=== PATIENT | female | born 1960 | race Caucasian/White ===

== ENCOUNTER 2020-08-05 19:43 | Inpatient (IN) | payer MEDICAID, OTHER ==
[~2020-08-05] VITALS: Ht 154.9 cm; Wt 74.8 kg
--- NOTE | 2020-08-05 19:53 | NUR ---
PT CAME IN TO TRIAGE ON A HOME NC WITH A EMPTY O2 BOTTLE. PT ROOM AIR SAT IN MID 70'S
--- NOTE | 2020-08-05 20:10 | NUR ---
PT C/O COUGH WITH VOMITING AT TIMES WITH COUGH/NASAL CONGESTION FOR INDETERMINATE AMOUNT OF TIME. PT [place] [facility] [place]. PT ALSO REPORTS DIFFICULTY WITH URINATING. PT DENIES CP.
[2020-08-05] MEDS ORDERED: INSULIN SQ (20:17)
[2020-08-05] MEDS ORDERED: SERT100T32 PO (20:17)
[2020-08-05] MEDS ORDERED: FLUT9.9S NS (20:17)
[2020-08-05] MEDS ORDERED: DIVA500T2 PO (20:17)
[2020-08-05] MEDS ORDERED: OMEP-110 PO (20:17)
[2020-08-05] MEDS ORDERED: MONT10TA6 PO (20:17)
[2020-08-05] MEDS ORDERED: IPRA12.9 INH (20:17)
[2020-08-05] MEDS ORDERED: QUET100T4 PO (20:17)
[2020-08-05] MEDS ORDERED: BUDE10.22 INH (20:17)
[2020-08-05] MEDS ORDERED: METF500T17 PO (20:17)
[2020-08-05] MEDS ORDERED: INSU100I34 SQ (20:17)
[2020-08-05] MEDS ORDERED: ASPI81TA45 PO (20:17)
[2020-08-05] MEDS ORDERED: QUET400T4 PO (20:17)
[2020-08-05] MEDS ORDERED: ONDANSETRON ODT 4 MG ONE (20:26)
[2020-08-05] MEDS ORDERED: ONDANSETRON ODT 4 MG PO ONE (20:30)
[2020-08-05 20:51] LABS: MICROSCOPIC NOT IND
[2020-08-05 20:58] LABS: MEAN CORPUSCULAR HGB CONC 31.9 g/dL (32.4-35.8); MEAN PLATELET VOLUME 7.7 fL (7.4-10.4); PLATELET COUNT 238 x10^3/uL (130-400); RED BLOOD COUNT 4.03 x10^6/uL (3.82-5.3)
[2020-08-05 21:06] LABS: ALBUMIN 3.2 g/dL (3.4-5.0); ANION GAP 3 mmol/L (5-15); CALCIUM 8.8 mg/dL (8.5-10.1); CHLORIDE 107 mmol/L (98-107); CREATININE 1.18 mg/dL (0.55-1.02)
[2020-08-05 21:13] LABS: ALANINE AMINOTRANSFERASE 23 U/L (12-78); ALKALINE PHOSPHATASE 71 U/L (45-117); BILIRUBIN,TOTAL 0.3 mg/dL (0.2-1.0); TOTAL PROTEIN 6.9 g/dL (6.4-8.2)
[2020-08-05] MEDS ORDERED: ALBUTEROL/IPRATROPIUM 2.5MG/0.5MG, 3 ML NPPB ONE (21:30)
[2020-08-05] MEDS ORDERED: ALBUTEROL SULFATE 2.5 MG/3 ML NPPB ONE (21:30)
[2020-08-05] MEDS ORDERED: SODIUM CHLORIDE 0.9% 1,000ML IVBOLUS ONE (21:30)
--- NOTE | 2020-08-05 21:31 | NUR ---
Lesli dalton in ED - 08/05/20 at 2131 by IRIS CHART UP FOR MD PUCKETT. PT AWARE.
[2020-08-05 21:33] LABS: ANISOCYTOSIS 1+; BASOPHILS # (AUTO) 0.02 x10^3/uL (0-0.1); BASOPHILS % (AUTO) 0 % (0-1); EOSINOPHILS # (AUTO) 0.02 x10^3/uL (0-0.4); EOSINOPHILS % (AUTO) 0 % (1-7); LYMPHOCYTES # (AUTO) 1.82 x10^3/uL (1-3.4); LYMPHOCYTES % (AUTO) 26 % (22-44); MD MORPH REVIEW ONLY; MONOCYTES # (AUTO) 1.32 x10^3/uL (0.2-0.8); MONOCYTES % (AUTO) 19 % (2-9); NEUTROPHILS # (AUTO) 3.85 x10^3/uL (1.8-6.8); NEUTROPHILS % (AUTO) 55 % (42-75); POLYCHROMASIA 1+
[2020-08-05 21:34] LABS: <PLATELET ESTIMATE> ADEQUATE; <PLT MORPHOLOGY> NORMAL PLT MORPH; HYPOCHROMIA 1+; OVALOCYTES 1+
--- NOTE | 2020-08-05 21:50 | NUR ---
IV STARTED AND FLUIDS RUNNING PER MD. REPORT TO DEYANIRA GARCIA. PT PLACED ON DROPLET PRECAUTIONS AND ROOM 17 DOOR CLOSED FOR COVID R/O.
--- NOTE | 2020-08-05 22:05 | NUR ---
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
--- NOTE | 2020-08-05 22:10 | NUR ---
COVID SWAB COLLECTED AND WALKED TO LAB
[2020-08-05] MEDS ORDERED: ALBUTEROL SULFATE 2.5 MG/3 ML ONE (22:20)
[2020-08-05] MEDS ORDERED: ALBUTEROL/IPRATROPIUM 2.5MG/0.5MG, 3 ML ONE (22:21)
[2020-08-05] MEDS ORDERED: AZITHROMYCIN 500 MG in SODIUM CHLORIDE 0.9% 250 ML IV ONE (22:30)
--- NOTE | 2020-08-05 22:48 | NUR ---
BREATHING TREATMENT STARTED
--- NOTE | 2020-08-05 22:48 | NUR ---
REPORT FROM RADHA MCMILLAN
[2020-08-05 22:50] LABS: AMPHETAMINE SCREEN, URINE Negative (Negative); BARBITURATE SCREEN, URINE Negative (Negative); BENZODIAZEPINE SCREEN, URINE Positive (Negative); CANNABINOID SCREEN, URINE Negative (Negative); METHADONE SCREEN, URINE Negative (Negative); OPIATE SCREEN, URINE Negative (Negative)
[2020-08-05 22:51] LABS: COCAINE SCREEN, URINE Negative (Negative)
--- NOTE | 2020-08-05 22:59 | NUR ---
REPORT TO RADHA MEDELLIN
[2020-08-05] MEDS ORDERED: ONDANSETRON ODT 4 MG PO PRN (23:30)
[2020-08-05] MEDS: INSULIN LISPRO 100 UNITS/ML, PEN SQ-INSULIN SCH (23:30)
[2020-08-05] MEDS ORDERED: OXYcodone IR 5MG TABLET PO PRN (23:30)
[2020-08-05] MEDS ORDERED: POLYETHYLENE GLYCOL 17 GM PACKET PO PRN (23:30)
[2020-08-05] MEDS ORDERED: hydrALAzine 20 MG/ML, 1ML IVPush PRN (23:30)
[2020-08-05] MEDS ORDERED: BISACODYL 10 MG SUPP PR PRN (23:30)
[2020-08-05] MEDS ORDERED: morphine SULFATE 10 MG/ML, 1ML IVPush PRN (23:30)
[2020-08-06 00:01] VITALS: BP 155/86
[2020-08-06] MEDS: methylPREDNISolone SOD SUCC 40 MG/ML IVPush SCH ×5 (00:24→23:18)
[2020-08-06] MEDS: ENOXAPARIN 40 MG/0.4 ML SQ SCH (00:24)
[2020-08-06] MEDS: PROMETHAZINE 25 MG/ML, 1ML IM PRN ×2 (00:25→03:36)
[2020-08-06] MEDS: GUAIFENESIN ER 600 MG TABLET PO SCH ×3 (00:28→20:51)
[2020-08-06] MEDS: CEFTRIAXONE PMX 2GM/50ML 50 ML IV SCH (00:43)
[2020-08-06 00:52] VITALS: BP 155/86
[2020-08-06] MEDS ORDERED: ALBUTEROL-IPRATROPIUM MDI INH INH PRN (01:30)
[2020-08-06] MEDS: ALBUTEROL-IPRATROPIUM MDI INH INH SCH ×4 (05:51→19:26)
[2020-08-06 05:55] LABS: BASOPHILS # (AUTO) 0.03 x10^3/uL (0-0.1); BASOPHILS % (AUTO) 0 % (0-1); EOSINOPHILS # (AUTO) 0.04 x10^3/uL (0-0.4); EOSINOPHILS % (AUTO) 1 % (1-7); LYMPHOCYTES # (AUTO) 1.43 x10^3/uL (1-3.4); LYMPHOCYTES % (AUTO) 20 % (22-44); MD NO; MEAN CORPUSCULAR HGB CONC 31.5 g/dL (32.4-35.8); MEAN PLATELET VOLUME 7.9 fL (7.4-10.4); MONOCYTES # (AUTO) 0.51 x10^3/uL (0.2-0.8); MONOCYTES % (AUTO) 7 % (2-9); NEUTROPHILS # (AUTO) 5.08 x10^3/uL (1.8-6.8); NEUTROPHILS % (AUTO) 72 % (42-75); PLATELET COUNT 204 x10^3/uL (130-400); RED BLOOD COUNT 4.25 x10^6/uL (3.82-5.3); RED CELL DISTRIBUTION WIDTH 19.7 % (9.6-15.2)
[2020-08-06 06:01] LABS: ALBUMIN 2.9 g/dL (3.4-5.0); ANION GAP 8 mmol/L (5-15); CALCIUM 8.2 mg/dL (8.5-10.1); CHLORIDE 108 mmol/L (98-107)
[2020-08-06 06:11] LABS: ALANINE AMINOTRANSFERASE 23 U/L (12-78); ALKALINE PHOSPHATASE 79 U/L (45-117); BILIRUBIN,TOTAL 0.2 mg/dL (0.2-1.0); CHOL/HDL RATIO 1.9; CHOLESTEROL, TOTAL 147 mg/dL (140-239); CREATININE 0.92 mg/dL (0.55-1.02); HDL CHOL % 52 % (28-40); HDL CHOLESTEROL (DIRECT) 77 mg/dL (40-60); LDL CHOLESTEROL,CALCULATED 52 mg/dL (54-169); LDL/HDL RATIO 0.7 (0.5-3.0); TOTAL PROTEIN 6.7 g/dL (6.4-8.2); TRIGLYCERIDES 92 mg/dL (50-200); VLDL CHOLESTEROL 18 mg/dL (0-25)
[2020-08-06 06:43] VITALS: BP 129/72
[2020-08-06] MEDS: FLUTICASONE/VILANTEROL 100-25MCG/INH INH SCH ×2 (06:56→10:33)
[2020-08-06] MEDS: INSULIN LISPRO 100 UNITS/ML, PEN SQ-INSULIN SCH ×4 (07:00→20:54)
[2020-08-06] MEDS ORDERED: ALBUTEROL-IPRATROPIUM MDI INH INH SCH (07:00)
[2020-08-06] MEDS: NICOTINE 21 MG/24 HR PATCH.TD24 TD SCH (11:23)
[2020-08-06 12:36] VITALS: BP 163/100
[2020-08-06 19:40] VITALS: BP 143/66
[2020-08-06] MEDS: ONDANSETRON 2MG/ML, 2ML IVPush PRN (20:55)
[2020-08-06] MEDS: LORazepam 0.5MG TABLET PO PRN (23:18)
[2020-08-06] MEDS: AZITHROMYCIN 500 MG in SODIUM CHLORIDE 0.9% 250 ML IV SCH (23:18)
[2020-08-07] MEDS: ENOXAPARIN 40 MG/0.4 ML SQ SCH (00:30)
[2020-08-07] MEDS: CEFTRIAXONE PMX 2GM/50ML 50 ML IV SCH (00:30)
[2020-08-07 01:00] VITALS: BP 159/85
[2020-08-07] MEDS: methylPREDNISolone SOD SUCC 40 MG/ML IVPush SCH ×3 (05:22→18:13)
[2020-08-07 06:00] LABS: BASOPHILS # (AUTO) 0.02 x10^3/uL (0-0.1); BASOPHILS % (AUTO) 0 % (0-1); EOSINOPHILS # (AUTO) 0.02 x10^3/uL (0-0.4); EOSINOPHILS % (AUTO) 0 % (1-7); LYMPHOCYTES # (AUTO) 1.43 x10^3/uL (1-3.4); LYMPHOCYTES % (AUTO) 25 % (22-44); MD NO; MEAN CORPUSCULAR HEMOGLOBIN 27.3 pg (27.0-34.8); MEAN CORPUSCULAR HGB CONC 31.8 g/dL (32.4-35.8); MEAN PLATELET VOLUME 8.1 fL (7.4-10.4); MONOCYTES # (AUTO) 0.51 x10^3/uL (0.2-0.8); MONOCYTES % (AUTO) 9 % (2-9); NEUTROPHILS # (AUTO) 3.83 x10^3/uL (1.8-6.8); NEUTROPHILS % (AUTO) 66 % (42-75); PLATELET COUNT 202 x10^3/uL (130-400); RED CELL DISTRIBUTION WIDTH 20.1 % (9.6-15.2)
[2020-08-07 06:27] VITALS: BP 143/87
[2020-08-07 06:27] LABS: CHLORIDE 103 mmol/L (98-107)
[2020-08-07 06:47] LABS: ALANINE AMINOTRANSFERASE 20 U/L (12-78); ALBUMIN 2.7 g/dL (3.4-5.0); ALKALINE PHOSPHATASE 63 U/L (45-117); ANION GAP 9 mmol/L (5-15); BILIRUBIN,TOTAL 0.3 mg/dL (0.2-1.0); CALCIUM 8.2 mg/dL (8.5-10.1); CREATININE 0.67 mg/dL (0.55-1.02); TOTAL PROTEIN 6.4 g/dL (6.4-8.2)
[2020-08-07] MEDS: ALBUTEROL-IPRATROPIUM MDI INH INH SCH ×4 (06:54→19:36)
[2020-08-07] MEDS: FLUTICASONE/VILANTEROL 100-25MCG/INH INH SCH (06:54)
[2020-08-07] MEDS: GUAIFENESIN ER 600 MG TABLET PO SCH ×2 (07:44→20:30)
[2020-08-07] MEDS: NICOTINE 21 MG/24 HR PATCH.TD24 TD SCH (07:44)
[2020-08-07] MEDS: LORazepam 0.5MG TABLET PO PRN ×2 (07:49→18:13)
[2020-08-07] MEDS: INSULIN LISPRO 100 UNITS/ML, PEN SQ-INSULIN SCH ×4 (07:50→20:29)
[2020-08-07 12:24] VITALS: BP 163/96
[2020-08-07] MEDS: ASCORBIC ACID 500 MG TABLET PO SCH (15:37)
[2020-08-07 19:46] VITALS: BP 159/84
[2020-08-07] MEDS: ONDANSETRON 2MG/ML, 2ML IVPush PRN (20:19)
[2020-08-07] MEDS: CHOLECALCIFEROL 400 UNITS TABLET PO SCH (20:29)
[2020-08-07] MEDS: THIAMINE 100MG TABLET PO SCH (20:29)
[2020-08-07] MEDS: AZITHROMYCIN 500 MG in SODIUM CHLORIDE 0.9% 250 ML IV SCH (22:49)
[2020-08-08] VITALS (7 sets, daily range): BP systolic 140–172; BP diastolic 63–92
[2020-08-08] MEDS: methylPREDNISolone SOD SUCC 40 MG/ML IVPush SCH ×3 (00:25→11:58)
[2020-08-08] MEDS: CEFTRIAXONE PMX 2GM/50ML 50 ML IV SCH (00:25)
[2020-08-08] MEDS: ENOXAPARIN 40 MG/0.4 ML SQ SCH (00:26)
[2020-08-08 05:09] LABS: MEAN CORPUSCULAR HEMOGLOBIN 27.5 pg (27.0-34.8); MEAN CORPUSCULAR HGB CONC 32.1 g/dL (32.4-35.8); PLATELET COUNT 221 x10^3/uL (130-400); RED BLOOD COUNT 4.17 x10^6/uL (3.82-5.3); RED CELL DISTRIBUTION WIDTH 20.5 % (9.6-15.2)
[2020-08-08 05:16] LABS: CHLORIDE 97 mmol/L (98-107)
[2020-08-08 05:26] LABS: ALANINE AMINOTRANSFERASE 18 U/L (12-78); ALBUMIN 2.8 g/dL (3.4-5.0); ALKALINE PHOSPHATASE 65 U/L (45-117); ANION GAP 6 mmol/L (5-15); BILIRUBIN,TOTAL 0.4 mg/dL (0.2-1.0); CALCIUM 8.3 mg/dL (8.5-10.1); TOTAL PROTEIN 6.6 g/dL (6.4-8.2)
[2020-08-08 05:56] LABS: MD YES
[2020-08-08 05:58] LABS: ANISOCYTOSIS 1+; BAND#(MANUAL) 0.18 x10^3/uL; BANDS%(MANUAL) 3 % (0-7); LYMPH#(MANUAL) 1.59 x10^3/uL (1-3.4); LYMPHS% (MANUAL) 26 % (22-44); METAMYELOCYTES# (MANUAL) 0.12 x10^3/uL (0-0); METAMYELOCYTES% (MANUAL) 2 % (0-1); MONOS#(MANUAL) 0.73 x10^3/uL (0.3-2.7); MONOS% (MANUAL) 12 % (2-9); REACTIVE LYMPHS # (MANUAL) 0.12 x10^3/uL (0-0); REACTIVE LYMPHS % (MANUAL) 2 % (0-0); SEG#(MANUAL) 3.36 x10^3/uL (1.8-6.8); SEGS% (MANUAL) 55 % (42-75)
[2020-08-08 05:59] LABS: OVALOCYTES 1+; POLYCHROMASIA 1+
[2020-08-08 06:00] LABS: <PLATELET ESTIMATE> ADEQUATE; <PLT MORPHOLOGY> NORMAL PLT MORPH; ECHINOCYTES 1+
[2020-08-08] MEDS: FLUTICASONE/VILANTEROL 100-25MCG/INH INH SCH (07:45)
[2020-08-08] MEDS: ALBUTEROL-IPRATROPIUM MDI INH INH SCH ×4 (07:45→21:00)
[2020-08-08] MEDS: NICOTINE 21 MG/24 HR PATCH.TD24 TD SCH (07:54)
[2020-08-08] MEDS: CHOLECALCIFEROL 400 UNITS TABLET PO SCH ×2 (07:54→21:12)
[2020-08-08] MEDS: ZINC SULFATE 220 MG CAPSULE PO SCH (07:54)
[2020-08-08] MEDS: ASCORBIC ACID 500 MG TABLET PO SCH ×2 (07:54→16:09)
[2020-08-08] MEDS: THIAMINE 100MG TABLET PO SCH ×2 (07:54→21:12)
[2020-08-08] MEDS: GUAIFENESIN ER 600 MG TABLET PO SCH ×2 (07:54→21:12)
[2020-08-08] MEDS: INSULIN LISPRO 100 UNITS/ML, PEN SQ-INSULIN SCH ×4 (07:55→21:13)
[2020-08-08] MEDS: INSULIN GLARGINE 100 UNITS/ML, PEN SQ-INSULIN SCH ×2 (15:00→21:13)
[2020-08-08] MEDS ORDERED: OMNIPAQUE 350 MG/ML, 100ML BOTTLE ONE (15:54)
[2020-08-08] MEDS ORDERED: LABETALOL 5MG/ML, 20ML IVPush PRN (16:30)
[2020-08-08] MEDS: LISINOPRIL 40 MG TABLET PO SCH (16:47)
[2020-08-08] MEDS: QUETIAPINE 200 MG TABLET PO SCH (21:12)
[2020-08-08] MEDS: DIVALPROEX 500 MG TABLET.DR PO SCH (21:12)
[2020-08-08] MEDS: AZITHROMYCIN 500 MG in SODIUM CHLORIDE 0.9% 250 ML IV SCH (23:08)
[2020-08-09 00:55] VITALS: BP 114/63
[2020-08-09] MEDS: CEFTRIAXONE PMX 2GM/50ML 50 ML IV SCH (01:01)
[2020-08-09] MEDS: ENOXAPARIN 40 MG/0.4 ML SQ SCH (01:01)
[2020-08-09 05:14] LABS: MEAN CORPUSCULAR HEMOGLOBIN 27.6 pg (27.0-34.8); MEAN CORPUSCULAR HGB CONC 32.3 g/dL (32.4-35.8); MEAN PLATELET VOLUME 8.2 fL (7.4-10.4); PLATELET COUNT 209 x10^3/uL (130-400); RED BLOOD COUNT 4.47 x10^6/uL (3.82-5.3)
[2020-08-09 05:19] LABS: CHLORIDE 100 mmol/L (98-107)
[2020-08-09 05:31] LABS: ALANINE AMINOTRANSFERASE 20 U/L (12-78); ALBUMIN 2.7 g/dL (3.4-5.0); ALKALINE PHOSPHATASE 60 U/L (45-117); ANION GAP 5 mmol/L (5-15); BILIRUBIN,TOTAL 0.3 mg/dL (0.2-1.0); CALCIUM 8.6 mg/dL (8.5-10.1); CREATININE 0.75 mg/dL (0.55-1.02); TOTAL PROTEIN 6.4 g/dL (6.4-8.2)
[2020-08-09 06:19] LABS: BASOPHILS # (AUTO) 0.07 x10^3/uL (0-0.1); BASOPHILS % (AUTO) 1 % (0-1); EOSINOPHILS # (AUTO) 0.05 x10^3/uL (0-0.4); EOSINOPHILS % (AUTO) 1 % (1-7); LYMPHOCYTES # (AUTO) 3.59 x10^3/uL (1-3.4); LYMPHOCYTES % (AUTO) 51 % (22-44); MD SCAN; MONOCYTES # (AUTO) 0.96 x10^3/uL (0.2-0.8); MONOCYTES % (AUTO) 14 % (2-9); NEUTROPHILS # (AUTO) 2.41 x10^3/uL (1.8-6.8); NEUTROPHILS % (AUTO) 34 % (42-75)
[2020-08-09 06:38] VITALS: BP 136/85
[2020-08-09] MEDS: INSULIN LISPRO 100 UNITS/ML, PEN SQ-INSULIN SCH ×4 (07:00→20:06)
[2020-08-09] MEDS: ALBUTEROL-IPRATROPIUM MDI INH INH SCH ×4 (08:00→20:06)
[2020-08-09] MEDS ORDERED: predniSONE 50MG TABLET PO SCH (08:00)
[2020-08-09] MEDS: FLUTICASONE/VILANTEROL 100-25MCG/INH INH SCH (08:00)
[2020-08-09] MEDS: CHOLECALCIFEROL 400 UNITS TABLET PO SCH ×2 (08:20→20:05)
[2020-08-09] MEDS: ASCORBIC ACID 500 MG TABLET PO SCH ×2 (08:21→15:59)
[2020-08-09] MEDS: GUAIFENESIN ER 600 MG TABLET PO SCH ×2 (08:21→20:05)
[2020-08-09] MEDS: LISINOPRIL 40 MG TABLET PO SCH (08:21)
[2020-08-09] MEDS: ZINC SULFATE 220 MG CAPSULE PO SCH (08:21)
[2020-08-09] MEDS: DIVALPROEX 500 MG TABLET.DR PO SCH ×2 (08:21→20:05)
[2020-08-09] MEDS: THIAMINE 100MG TABLET PO SCH ×2 (08:21→20:05)
[2020-08-09] MEDS: QUETIAPINE 100MG TABLET PO SCH (08:21)
[2020-08-09] MEDS: INSULIN GLARGINE 100 UNITS/ML, PEN SQ-INSULIN SCH ×3 (08:26→20:06)
[2020-08-09] MEDS: NICOTINE 21 MG/24 HR PATCH.TD24 TD SCH (08:28)
[2020-08-09] MEDS ORDERED: QUETIAPINE 100MG TABLET PO SCH (09:00)
[2020-08-09] MEDS: AMOXICILLIN/CLAV 875-125MG TABLET PO SCH ×2 (09:48→20:04)
[2020-08-09] MEDS: SERTRALINE 100MG TABLET PO SCH (09:48)
[2020-08-09] MEDS: MONTELUKAST 10 MG TABLET PO SCH (09:48)
[2020-08-09] MEDS: AZITHROMYCIN 500 MG TABLET PO SCH (09:48)
[2020-08-09] MEDS: ASPIRIN 81 MG TABLET EC PO SCH (09:48)
[2020-08-09] MEDS: OMEPRAZOLE 20 MG CAPSULE.DR PO SCH (09:49)
[2020-08-09] MEDS ORDERED: MAGNESIUM CITRATE 300ML ORAL SOL PO ONE (12:00)
[2020-08-09 12:04] VITALS: BP 129/77
[2020-08-09] MEDS: DOCUSATE 100 MG CAPSULE PO PRN (16:29)
[2020-08-09 18:20] VITALS: BP 153/79
[2020-08-09] MEDS: ACETAMINOPHEN 325 MG TABLET PO PRN (20:04)
[2020-08-09] MEDS: QUETIAPINE 200 MG TABLET PO SCH (20:04)
[2020-08-10] MEDS: ENOXAPARIN 40 MG/0.4 ML SQ SCH ×2 (00:28→21:12)
[2020-08-10 00:30] VITALS: BP 144/83
[2020-08-10] MEDS: ACETAMINOPHEN 325 MG TABLET PO PRN (00:37)
[2020-08-10] MEDS: ALBUTEROL-IPRATROPIUM MDI INH INH SCH ×4 (06:31→20:15)
[2020-08-10] MEDS: ASCORBIC ACID 500 MG TABLET PO SCH ×2 (06:32→16:59)
[2020-08-10] MEDS: OMEPRAZOLE 20 MG CAPSULE.DR PO SCH (06:32)
[2020-08-10] MEDS: INSULIN LISPRO 100 UNITS/ML, PEN SQ-INSULIN SCH ×4 (06:37→21:11)
[2020-08-10 06:38] VITALS: BP 134/81
[2020-08-10] MEDS: FLUTICASONE/VILANTEROL 100-25MCG/INH INH SCH (08:58)
[2020-08-10] MEDS: LISINOPRIL 40 MG TABLET PO SCH (09:08)
[2020-08-10] MEDS: ZINC SULFATE 220 MG CAPSULE PO SCH (09:08)
[2020-08-10] MEDS: SERTRALINE 100MG TABLET PO SCH (09:08)
[2020-08-10] MEDS: CHOLECALCIFEROL 400 UNITS TABLET PO SCH ×2 (09:08→21:12)
[2020-08-10] MEDS: DOCUSATE 100 MG CAPSULE PO PRN (09:08)
[2020-08-10] MEDS: ASPIRIN 81 MG TABLET EC PO SCH (09:09)
[2020-08-10] MEDS: QUETIAPINE 100MG TABLET PO SCH (09:09)
[2020-08-10] MEDS: GUAIFENESIN ER 600 MG TABLET PO SCH ×2 (09:09→21:12)
[2020-08-10] MEDS: MONTELUKAST 10 MG TABLET PO SCH (09:09)
[2020-08-10] MEDS: NICOTINE 21 MG/24 HR PATCH.TD24 TD SCH (09:09)
[2020-08-10] MEDS: AZITHROMYCIN 500 MG TABLET PO SCH (09:09)
[2020-08-10] MEDS: DIVALPROEX 500 MG TABLET.DR PO SCH ×2 (09:09→21:12)
[2020-08-10] MEDS: AMOXICILLIN/CLAV 875-125MG TABLET PO SCH ×2 (09:09→21:12)
[2020-08-10] MEDS: THIAMINE 100MG TABLET PO SCH ×2 (09:09→21:12)
[2020-08-10 12:05] VITALS: BP 119/71
[2020-08-10 12:20] VITALS: BP 123/80
[2020-08-10 18:25] VITALS: BP 127/71
[2020-08-10] MEDS ORDERED: INSULIN GLARGINE 100 UNITS/ML, PEN SQ-INSULIN SCH (21:00)
[2020-08-10] MEDS: QUETIAPINE 200 MG TABLET PO SCH (21:12)
[2020-08-11 00:08] VITALS: BP 103/69
[2020-08-11] MEDS: ALBUTEROL-IPRATROPIUM MDI INH INH SCH ×4 (06:13→20:02)
[2020-08-11] MEDS: INSULIN LISPRO 100 UNITS/ML, PEN SQ-INSULIN SCH ×4 (07:00→21:12)
[2020-08-11 07:01] VITALS: BP 144/91
[2020-08-11] MEDS: FLUTICASONE/VILANTEROL 100-25MCG/INH INH SCH (08:59)
[2020-08-11] MEDS: NICOTINE 21 MG/24 HR PATCH.TD24 TD SCH (09:05)
[2020-08-11] MEDS: ASCORBIC ACID 500 MG TABLET PO SCH ×2 (09:06→16:46)
[2020-08-11] MEDS: DIVALPROEX 500 MG TABLET.DR PO SCH ×2 (09:06→21:01)
[2020-08-11] MEDS: LISINOPRIL 40 MG TABLET PO SCH (09:06)
[2020-08-11] MEDS: ACETAMINOPHEN 325 MG TABLET PO PRN ×2 (09:06→21:01)
[2020-08-11] MEDS: SERTRALINE 100MG TABLET PO SCH (09:06)
[2020-08-11] MEDS: MONTELUKAST 10 MG TABLET PO SCH (09:06)
[2020-08-11] MEDS: ZINC SULFATE 220 MG CAPSULE PO SCH (09:06)
[2020-08-11] MEDS: CHOLECALCIFEROL 400 UNITS TABLET PO SCH ×2 (09:06→21:01)
[2020-08-11] MEDS: AMOXICILLIN/CLAV 875-125MG TABLET PO SCH ×2 (09:06→21:01)
[2020-08-11] MEDS: AZITHROMYCIN 500 MG TABLET PO SCH (09:06)
[2020-08-11] MEDS: ASPIRIN 81 MG TABLET EC PO SCH (09:06)
[2020-08-11] MEDS: THIAMINE 100MG TABLET PO SCH ×2 (09:07→21:00)
[2020-08-11] MEDS: OMEPRAZOLE 20 MG CAPSULE.DR PO SCH (09:07)
[2020-08-11] MEDS: QUETIAPINE 100MG TABLET PO SCH (09:07)
[2020-08-11] MEDS: GUAIFENESIN ER 600 MG TABLET PO SCH ×2 (09:07→21:01)
[2020-08-11 11:17] VITALS: BP 100/64
[2020-08-11 20:58] VITALS: BP 109/75
[2020-08-11] MEDS: QUETIAPINE 200 MG TABLET PO SCH (21:00)
[2020-08-11] MEDS: ENOXAPARIN 40 MG/0.4 ML SQ SCH (21:02)
[2020-08-12 00:05] VITALS: BP 116/77
[2020-08-12] MEDS: ALBUTEROL-IPRATROPIUM MDI INH INH SCH ×4 (05:24→20:55)
[2020-08-12 06:50] VITALS: BP 123/81
[2020-08-12] MEDS: INSULIN LISPRO 100 UNITS/ML, PEN SQ-INSULIN SCH ×4 (07:00→20:56)
[2020-08-12] MEDS: SERTRALINE 100MG TABLET PO SCH (08:37)
[2020-08-12] MEDS: GUAIFENESIN ER 600 MG TABLET PO SCH ×2 (08:37→20:55)
[2020-08-12] MEDS: AMOXICILLIN/CLAV 875-125MG TABLET PO SCH (08:38)
[2020-08-12] MEDS: OMEPRAZOLE 20 MG CAPSULE.DR PO SCH (08:38)
[2020-08-12] MEDS: MONTELUKAST 10 MG TABLET PO SCH (08:38)
[2020-08-12] MEDS: ASCORBIC ACID 500 MG TABLET PO SCH ×2 (08:38→16:11)
[2020-08-12] MEDS: QUETIAPINE 100MG TABLET PO SCH (08:38)
[2020-08-12] MEDS: DIVALPROEX 500 MG TABLET.DR PO SCH ×2 (08:38→20:56)
[2020-08-12] MEDS: ASPIRIN 81 MG TABLET EC PO SCH (08:38)
[2020-08-12] MEDS: ZINC SULFATE 220 MG CAPSULE PO SCH (08:38)
[2020-08-12] MEDS: AZITHROMYCIN 500 MG TABLET PO SCH (08:38)
[2020-08-12] MEDS: CHOLECALCIFEROL 400 UNITS TABLET PO SCH ×2 (08:38→20:55)
[2020-08-12] MEDS: THIAMINE 100MG TABLET PO SCH ×2 (08:38→20:56)
[2020-08-12] MEDS: LISINOPRIL 40 MG TABLET PO SCH (08:39)
[2020-08-12] MEDS: NICOTINE 21 MG/24 HR PATCH.TD24 TD SCH (08:39)
[2020-08-12] MEDS: FLUTICASONE/VILANTEROL 100-25MCG/INH INH SCH (08:39)
[2020-08-12 13:08] VITALS: BP 117/74
[2020-08-12 19:26] VITALS: BP 113/76
[2020-08-12] MEDS: QUETIAPINE 200 MG TABLET PO SCH (20:55)
[2020-08-12] MEDS: ENOXAPARIN 40 MG/0.4 ML SQ SCH (20:57)
[2020-08-13 00:36] VITALS: BP 115/74
[2020-08-13] MEDS: ALBUTEROL-IPRATROPIUM MDI INH INH SCH ×4 (05:41→20:09)
[2020-08-13 06:27] VITALS: BP 104/68
[2020-08-13] MEDS: NICOTINE 21 MG/24 HR PATCH.TD24 TD SCH (08:47)
[2020-08-13] MEDS: INSULIN LISPRO 100 UNITS/ML, PEN SQ-INSULIN SCH ×4 (08:47→20:00)
[2020-08-13] MEDS: FLUTICASONE/VILANTEROL 100-25MCG/INH INH SCH (08:47)
[2020-08-13] MEDS: QUETIAPINE 100MG TABLET PO SCH (08:48)
[2020-08-13] MEDS: ZINC SULFATE 220 MG CAPSULE PO SCH (08:48)
[2020-08-13] MEDS: ASCORBIC ACID 500 MG TABLET PO SCH (08:48)
[2020-08-13] MEDS: DIVALPROEX 500 MG TABLET.DR PO SCH ×2 (08:48→20:09)
[2020-08-13] MEDS: MONTELUKAST 10 MG TABLET PO SCH (08:48)
[2020-08-13] MEDS: CHOLECALCIFEROL 400 UNITS TABLET PO SCH ×2 (08:48→20:09)
[2020-08-13] MEDS: LISINOPRIL 40 MG TABLET PO SCH (08:49)
[2020-08-13] MEDS: GUAIFENESIN ER 600 MG TABLET PO SCH ×2 (08:49→20:10)
[2020-08-13] MEDS: SERTRALINE 100MG TABLET PO SCH (08:49)
[2020-08-13] MEDS: THIAMINE 100MG TABLET PO SCH (08:49)
[2020-08-13] MEDS: ASPIRIN 81 MG TABLET EC PO SCH (08:49)
[2020-08-13] MEDS: OMEPRAZOLE 20 MG CAPSULE.DR PO SCH (08:49)
[2020-08-13 12:12] VITALS: BP 106/56
[2020-08-13 18:34] VITALS: BP 122/74
[2020-08-13] MEDS: QUETIAPINE 200 MG TABLET PO SCH (20:09)
[2020-08-13] MEDS: ENOXAPARIN 40 MG/0.4 ML SQ SCH (20:09)
[2020-08-14 00:03] VITALS: BP 126/74
[2020-08-14] MEDS: ALBUTEROL-IPRATROPIUM MDI INH INH SCH ×4 (05:46→19:25)
[2020-08-14 06:42] VITALS: BP 117/79
[2020-08-14] MEDS: INSULIN LISPRO 100 UNITS/ML, PEN SQ-INSULIN SCH ×4 (07:00→20:21)
[2020-08-14] MEDS: FLUTICASONE/VILANTEROL 100-25MCG/INH INH SCH (07:33)
[2020-08-14] MEDS: CHOLECALCIFEROL 400 UNITS TABLET PO SCH ×2 (07:49→20:19)
[2020-08-14] MEDS: GUAIFENESIN ER 600 MG TABLET PO SCH ×2 (07:50→20:20)
[2020-08-14] MEDS: DIVALPROEX 500 MG TABLET.DR PO SCH ×2 (07:50→20:20)
[2020-08-14] MEDS: OMEPRAZOLE 20 MG CAPSULE.DR PO SCH (07:50)
[2020-08-14] MEDS: NICOTINE 21 MG/24 HR PATCH.TD24 TD SCH (07:50)
[2020-08-14] MEDS: SERTRALINE 100MG TABLET PO SCH (07:50)
[2020-08-14] MEDS: MONTELUKAST 10 MG TABLET PO SCH (07:50)
[2020-08-14] MEDS: ASPIRIN 81 MG TABLET EC PO SCH (07:50)
[2020-08-14] MEDS: QUETIAPINE 100MG TABLET PO SCH (07:50)
[2020-08-14] MEDS: LISINOPRIL 40 MG TABLET PO SCH (07:50)
[2020-08-14 11:48] VITALS: BP 102/66
[2020-08-14 18:27] VITALS: BP 100/63
[2020-08-14] MEDS: ENOXAPARIN 40 MG/0.4 ML SQ SCH (20:19)
[2020-08-14] MEDS: QUETIAPINE 200 MG TABLET PO SCH (20:19)
[2020-08-15 01:14] VITALS: BP 98/62
[2020-08-15 04:21] LABS: CREATININE 0.57 mg/dL (0.55-1.02)
[2020-08-15] MEDS: ALBUTEROL-IPRATROPIUM MDI INH INH SCH ×4 (05:18→19:26)
[2020-08-15] MEDS: INSULIN LISPRO 100 UNITS/ML, PEN SQ-INSULIN SCH ×4 (07:00→20:46)
[2020-08-15 07:15] VITALS: BP 92/64
[2020-08-15] MEDS: ASPIRIN 81 MG TABLET EC PO SCH (08:37)
[2020-08-15] MEDS: QUETIAPINE 100MG TABLET PO SCH (08:37)
[2020-08-15] MEDS: CHOLECALCIFEROL 400 UNITS TABLET PO SCH ×2 (08:37→20:45)
[2020-08-15] MEDS: OMEPRAZOLE 20 MG CAPSULE.DR PO SCH (08:37)
[2020-08-15] MEDS: MONTELUKAST 10 MG TABLET PO SCH (08:37)
[2020-08-15] MEDS: DIVALPROEX 500 MG TABLET.DR PO SCH ×2 (08:37→20:45)
[2020-08-15] MEDS: SERTRALINE 100MG TABLET PO SCH (08:37)
[2020-08-15] MEDS: GUAIFENESIN ER 600 MG TABLET PO SCH ×2 (08:37→20:45)
[2020-08-15] MEDS: LISINOPRIL 40 MG TABLET PO SCH (08:38)
[2020-08-15] MEDS: NICOTINE 21 MG/24 HR PATCH.TD24 TD SCH (08:38)
[2020-08-15] MEDS: FLUTICASONE/VILANTEROL 100-25MCG/INH INH SCH (08:38)
[2020-08-15 13:58] VITALS: BP 90/54
[2020-08-15 18:34] VITALS: BP 107/67
[2020-08-15 20:40] VITALS: BP 102/66
[2020-08-15] MEDS: QUETIAPINE 200 MG TABLET PO SCH (20:45)
[2020-08-15] MEDS: ENOXAPARIN 40 MG/0.4 ML SQ SCH (20:47)
[2020-08-16 00:38] VITALS: BP 105/60
[2020-08-16 06:35] VITALS: BP 118/75
[2020-08-16] MEDS: INSULIN LISPRO 100 UNITS/ML, PEN SQ-INSULIN SCH ×4 (07:00→20:30)
[2020-08-16] MEDS: FLUTICASONE/VILANTEROL 100-25MCG/INH INH SCH ×2 (07:15→07:58)
[2020-08-16] MEDS: ALBUTEROL-IPRATROPIUM MDI INH INH SCH ×5 (07:15→20:07)
[2020-08-16] MEDS: SERTRALINE 100MG TABLET PO SCH (07:58)
[2020-08-16] MEDS: OMEPRAZOLE 20 MG CAPSULE.DR PO SCH (07:58)
[2020-08-16] MEDS: CHOLECALCIFEROL 400 UNITS TABLET PO SCH ×2 (07:58→20:30)
[2020-08-16] MEDS: QUETIAPINE 100MG TABLET PO SCH (07:59)
[2020-08-16] MEDS: DIVALPROEX 500 MG TABLET.DR PO SCH ×2 (07:59→20:31)
[2020-08-16] MEDS: NICOTINE 21 MG/24 HR PATCH.TD24 TD SCH (07:59)
[2020-08-16] MEDS: LISINOPRIL 40 MG TABLET PO SCH (07:59)
[2020-08-16] MEDS: ASPIRIN 81 MG TABLET EC PO SCH (07:59)
[2020-08-16] MEDS: GUAIFENESIN ER 600 MG TABLET PO SCH ×2 (07:59→20:30)
[2020-08-16] MEDS: MONTELUKAST 10 MG TABLET PO SCH (07:59)
[2020-08-16 12:11] VITALS: BP 99/63
[2020-08-16 19:25] VITALS: BP 135/84
[2020-08-16] MEDS: ACETAMINOPHEN 325 MG TABLET PO PRN (20:29)
[2020-08-16] MEDS: INSULIN GLARGINE 100 UNITS/ML, PEN SQ-INSULIN SCH (20:30)
[2020-08-16] MEDS: QUETIAPINE 200 MG TABLET PO SCH (20:31)
[2020-08-16] MEDS: ENOXAPARIN 40 MG/0.4 ML SQ SCH (20:40)
[2020-08-17 02:23] VITALS: BP 106/68
[2020-08-17] MEDS: ALBUTEROL-IPRATROPIUM MDI INH INH SCH ×4 (05:52→19:32)
[2020-08-17 06:17] VITALS: BP 102/65
[2020-08-17] MEDS: INSULIN LISPRO 100 UNITS/ML, PEN SQ-INSULIN SCH ×4 (07:00→20:16)
[2020-08-17] MEDS: LISINOPRIL 40 MG TABLET PO SCH (07:59)
[2020-08-17] MEDS: MONTELUKAST 10 MG TABLET PO SCH (07:59)
[2020-08-17] MEDS: SERTRALINE 100MG TABLET PO SCH (07:59)
[2020-08-17] MEDS: OMEPRAZOLE 20 MG CAPSULE.DR PO SCH (07:59)
[2020-08-17] MEDS: DIVALPROEX 500 MG TABLET.DR PO SCH ×2 (07:59→20:16)
[2020-08-17] MEDS: ASPIRIN 81 MG TABLET EC PO SCH (07:59)
[2020-08-17] MEDS: CHOLECALCIFEROL 400 UNITS TABLET PO SCH ×2 (07:59→20:16)
[2020-08-17] MEDS: GUAIFENESIN ER 600 MG TABLET PO SCH ×2 (07:59→20:16)
[2020-08-17] MEDS: FLUTICASONE/VILANTEROL 100-25MCG/INH INH SCH (08:00)
[2020-08-17] MEDS: QUETIAPINE 100MG TABLET PO SCH (08:00)
[2020-08-17] MEDS: NICOTINE 21 MG/24 HR PATCH.TD24 TD SCH (08:01)
[2020-08-17 12:00] VITALS: BP 100/65
[2020-08-17] MEDS: BENZONATATE 100 MG CAPSULE PO SCH ×2 (16:39→20:16)
[2020-08-17 18:54] VITALS: BP 137/83
[2020-08-17] MEDS: QUETIAPINE 200 MG TABLET PO SCH (20:16)
[2020-08-17] MEDS: INSULIN GLARGINE 100 UNITS/ML, PEN SQ-INSULIN SCH (20:17)
[2020-08-17] MEDS: ENOXAPARIN 40 MG/0.4 ML SQ SCH (20:25)
[2020-08-18 01:56] VITALS: BP 104/66
[2020-08-18 06:27] VITALS: BP 124/82
[2020-08-18] MEDS: OMEPRAZOLE 20 MG CAPSULE.DR PO SCH (06:40)
[2020-08-18] MEDS: ALBUTEROL-IPRATROPIUM MDI INH INH SCH ×4 (06:40→19:24)
[2020-08-18] MEDS: INSULIN LISPRO 100 UNITS/ML, PEN SQ-INSULIN SCH ×4 (06:56→20:53)
[2020-08-18] MEDS: DIVALPROEX 500 MG TABLET.DR PO SCH ×2 (08:16→20:53)
[2020-08-18] MEDS: ASPIRIN 81 MG TABLET EC PO SCH (08:16)
[2020-08-18] MEDS: MONTELUKAST 10 MG TABLET PO SCH (08:16)
[2020-08-18] MEDS: NICOTINE 21 MG/24 HR PATCH.TD24 TD SCH (08:16)
[2020-08-18] MEDS: LISINOPRIL 40 MG TABLET PO SCH (08:16)
[2020-08-18] MEDS: BENZONATATE 100 MG CAPSULE PO SCH ×3 (08:17→20:53)
[2020-08-18] MEDS: GUAIFENESIN ER 600 MG TABLET PO SCH ×2 (08:17→20:54)
[2020-08-18] MEDS: SERTRALINE 100MG TABLET PO SCH (08:17)
[2020-08-18] MEDS: QUETIAPINE 100MG TABLET PO SCH (08:17)
[2020-08-18] MEDS: CHOLECALCIFEROL 400 UNITS TABLET PO SCH ×2 (08:17→20:53)
[2020-08-18] MEDS: FLUTICASONE/VILANTEROL 100-25MCG/INH INH SCH (08:55)
[2020-08-18 12:03] VITALS: BP 94/61
[2020-08-18 18:21] VITALS: BP 112/73
[2020-08-18] MEDS: INSULIN GLARGINE 100 UNITS/ML, PEN SQ-INSULIN SCH (20:53)
[2020-08-18] MEDS: ENOXAPARIN 40 MG/0.4 ML SQ SCH (20:53)
[2020-08-18] MEDS: QUETIAPINE 200 MG TABLET PO SCH (20:54)
[2020-08-19] VITALS: BP 107/70
[2020-08-19] MEDS: ALBUTEROL-IPRATROPIUM MDI INH INH SCH ×4 (06:00→19:34)
[2020-08-19 06:43] VITALS: BP 100/69
[2020-08-19] MEDS: INSULIN LISPRO 100 UNITS/ML, PEN SQ-INSULIN SCH ×4 (07:00→20:22)
[2020-08-19] MEDS: QUETIAPINE 100MG TABLET PO SCH (08:16)
[2020-08-19] MEDS: LISINOPRIL 40 MG TABLET PO SCH (08:16)
[2020-08-19] MEDS: NICOTINE 21 MG/24 HR PATCH.TD24 TD SCH (08:16)
[2020-08-19] MEDS: OMEPRAZOLE 20 MG CAPSULE.DR PO SCH (08:16)
[2020-08-19] MEDS: MONTELUKAST 10 MG TABLET PO SCH (08:16)
[2020-08-19] MEDS: CHOLECALCIFEROL 400 UNITS TABLET PO SCH ×2 (08:17→20:22)
[2020-08-19] MEDS: ASPIRIN 81 MG TABLET EC PO SCH (08:17)
[2020-08-19] MEDS: BENZONATATE 100 MG CAPSULE PO SCH ×3 (08:17→20:22)
[2020-08-19] MEDS: DIVALPROEX 500 MG TABLET.DR PO SCH ×2 (08:17→20:22)
[2020-08-19] MEDS: GUAIFENESIN ER 600 MG TABLET PO SCH ×2 (08:17→20:22)
[2020-08-19] MEDS: SERTRALINE 100MG TABLET PO SCH (08:17)
[2020-08-19] MEDS: FLUTICASONE/VILANTEROL 100-25MCG/INH INH SCH (09:00)
[2020-08-19 12:37] VITALS: BP 99/66
[2020-08-19] MEDS: ACETAMINOPHEN 325 MG TABLET PO PRN (15:41)
[2020-08-19 19:52] VITALS: BP 102/63
[2020-08-19] MEDS: INSULIN GLARGINE 100 UNITS/ML, PEN SQ-INSULIN SCH (20:21)
[2020-08-19] MEDS: ENOXAPARIN 40 MG/0.4 ML SQ SCH (20:21)
[2020-08-19] MEDS: QUETIAPINE 200 MG TABLET PO SCH (20:22)
[2020-08-20 01:20] VITALS: BP 108/69
[2020-08-20] MEDS: ALBUTEROL-IPRATROPIUM MDI INH INH SCH ×4 (06:43→19:35)
[2020-08-20] MEDS: INSULIN LISPRO 100 UNITS/ML, PEN SQ-INSULIN SCH ×4 (06:44→20:19)
[2020-08-20] MEDS: OMEPRAZOLE 20 MG CAPSULE.DR PO SCH (06:44)
[2020-08-20 06:45] VITALS: BP 93/57
[2020-08-20 06:50] VITALS: BP 92/58
[2020-08-20] MEDS: QUETIAPINE 100MG TABLET PO SCH (08:53)
[2020-08-20] MEDS: BENZONATATE 100 MG CAPSULE PO SCH ×3 (08:54→20:18)
[2020-08-20] MEDS: NICOTINE 21 MG/24 HR PATCH.TD24 TD SCH (08:54)
[2020-08-20] MEDS: DIVALPROEX 500 MG TABLET.DR PO SCH ×2 (08:54→20:19)
[2020-08-20] MEDS: GUAIFENESIN ER 600 MG TABLET PO SCH ×2 (08:54→20:19)
[2020-08-20] MEDS: FLUTICASONE/VILANTEROL 100-25MCG/INH INH SCH (08:54)
[2020-08-20] MEDS: MONTELUKAST 10 MG TABLET PO SCH (08:54)
[2020-08-20] MEDS: CHOLECALCIFEROL 400 UNITS TABLET PO SCH ×2 (08:54→20:19)
[2020-08-20] MEDS: LISINOPRIL 40 MG TABLET PO SCH (08:54)
[2020-08-20] MEDS: SERTRALINE 100MG TABLET PO SCH (08:54)
[2020-08-20] MEDS: ASPIRIN 81 MG TABLET EC PO SCH (08:54)
[2020-08-20 13:10] VITALS: BP 94/64
[2020-08-20 18:28] VITALS: BP 124/78
[2020-08-20] MEDS: ENOXAPARIN 40 MG/0.4 ML SQ SCH (20:18)
[2020-08-20] MEDS: QUETIAPINE 200 MG TABLET PO SCH (20:19)
[2020-08-20] MEDS: INSULIN GLARGINE 100 UNITS/ML, PEN SQ-INSULIN SCH (20:20)
[2020-08-21 00:32] VITALS: BP 121/76
[2020-08-21] MEDS: ALBUTEROL-IPRATROPIUM MDI INH INH SCH ×4 (06:42→16:26)
[2020-08-21] MEDS: INSULIN LISPRO 100 UNITS/ML, PEN SQ-INSULIN SCH ×4 (06:42→20:18)
[2020-08-21] MEDS: OMEPRAZOLE 20 MG CAPSULE.DR PO SCH (06:42)
[2020-08-21 07:07] VITALS: BP 108/69
[2020-08-21] MEDS: FLUTICASONE/VILANTEROL 100-25MCG/INH INH SCH ×2 (09:00→12:12)
[2020-08-21] MEDS: CHOLECALCIFEROL 400 UNITS TABLET PO SCH ×2 (09:56→20:13)
[2020-08-21] MEDS: GUAIFENESIN ER 600 MG TABLET PO SCH ×2 (09:56→20:14)
[2020-08-21] MEDS: DIVALPROEX 500 MG TABLET.DR PO SCH ×2 (09:57→20:14)
[2020-08-21] MEDS: QUETIAPINE 100MG TABLET PO SCH (09:57)
[2020-08-21] MEDS: ASPIRIN 81 MG TABLET EC PO SCH (09:57)
[2020-08-21] MEDS: LISINOPRIL 40 MG TABLET PO SCH (09:57)
[2020-08-21] MEDS: BENZONATATE 100 MG CAPSULE PO SCH ×3 (09:57→20:13)
[2020-08-21] MEDS: MONTELUKAST 10 MG TABLET PO SCH (09:57)
[2020-08-21] MEDS: SERTRALINE 100MG TABLET PO SCH (09:57)
[2020-08-21] MEDS: INSULIN GLARGINE 100 UNITS/ML, PEN SQ-INSULIN SCH ×2 (09:58→20:17)
[2020-08-21] MEDS: NICOTINE 21 MG/24 HR PATCH.TD24 TD SCH (09:58)
[2020-08-21 12:29] VITALS: BP 123/74
[2020-08-21 18:48] VITALS: BP 119/74
[2020-08-21] MEDS: ENOXAPARIN 40 MG/0.4 ML SQ SCH (20:14)
[2020-08-21] MEDS: QUETIAPINE 200 MG TABLET PO SCH (20:14)
[2020-08-22 00:40] VITALS: BP 100/58
[2020-08-22] MEDS: ALBUTEROL-IPRATROPIUM MDI INH INH SCH ×4 (06:00→19:14)
[2020-08-22 06:48] VITALS: BP 116/71
[2020-08-22] MEDS: INSULIN LISPRO 100 UNITS/ML, PEN SQ-INSULIN SCH ×4 (07:00→21:06)
[2020-08-22] MEDS: MONTELUKAST 10 MG TABLET PO SCH (07:54)
[2020-08-22] MEDS: NICOTINE 21 MG/24 HR PATCH.TD24 TD SCH (07:54)
[2020-08-22] MEDS: GUAIFENESIN ER 600 MG TABLET PO SCH ×2 (07:54→21:04)
[2020-08-22] MEDS: OMEPRAZOLE 20 MG CAPSULE.DR PO SCH (07:54)
[2020-08-22] MEDS: CHOLECALCIFEROL 400 UNITS TABLET PO SCH ×2 (07:54→21:04)
[2020-08-22] MEDS: BENZONATATE 100 MG CAPSULE PO SCH ×3 (07:55→21:04)
[2020-08-22] MEDS: LISINOPRIL 40 MG TABLET PO SCH (07:55)
[2020-08-22] MEDS: DIVALPROEX 500 MG TABLET.DR PO SCH ×2 (07:55→21:04)
[2020-08-22] MEDS: SERTRALINE 100MG TABLET PO SCH (07:55)
[2020-08-22] MEDS: ASPIRIN 81 MG TABLET EC PO SCH (07:55)
[2020-08-22] MEDS: QUETIAPINE 100MG TABLET PO SCH (07:55)
[2020-08-22] MEDS: INSULIN GLARGINE 100 UNITS/ML, PEN SQ-INSULIN SCH ×2 (07:56→21:07)
[2020-08-22 15:04] VITALS: BP 125/77
[2020-08-22 20:30] VITALS: BP 132/82
[2020-08-22] MEDS: ENOXAPARIN 40 MG/0.4 ML SQ SCH (21:00)
[2020-08-22] MEDS: QUETIAPINE 200 MG TABLET PO SCH (21:04)
[2020-08-23 01:38] VITALS: BP 123/76
[2020-08-23] MEDS: INSULIN LISPRO 100 UNITS/ML, PEN SQ-INSULIN SCH ×4 (07:00→20:54)
[2020-08-23] MEDS: OMEPRAZOLE 20 MG CAPSULE.DR PO SCH (07:56)
[2020-08-23] MEDS: BENZONATATE 100 MG CAPSULE PO SCH ×3 (07:56→20:58)
[2020-08-23] MEDS: CHOLECALCIFEROL 400 UNITS TABLET PO SCH ×2 (07:56→20:54)
[2020-08-23] MEDS: QUETIAPINE 100MG TABLET PO SCH (07:57)
[2020-08-23] MEDS: MONTELUKAST 10 MG TABLET PO SCH (07:57)
[2020-08-23] MEDS: DIVALPROEX 500 MG TABLET.DR PO SCH ×2 (07:57→20:54)
[2020-08-23] MEDS: LISINOPRIL 40 MG TABLET PO SCH (07:57)
[2020-08-23] MEDS: GUAIFENESIN ER 600 MG TABLET PO SCH ×2 (07:57→20:54)
[2020-08-23] MEDS: SERTRALINE 100MG TABLET PO SCH (07:57)
[2020-08-23] MEDS: ASPIRIN 81 MG TABLET EC PO SCH (07:57)
[2020-08-23] MEDS: INSULIN GLARGINE 100 UNITS/ML, PEN SQ-INSULIN SCH ×2 (07:58→20:56)
[2020-08-23] MEDS: NICOTINE 21 MG/24 HR PATCH.TD24 TD SCH (08:06)
[2020-08-23 08:07] VITALS: BP 101/59
[2020-08-23] MEDS: ALBUTEROL-IPRATROPIUM MDI INH INH SCH ×4 (09:22→19:05)
[2020-08-23] MEDS: FLUTICASONE/VILANTEROL 100-25MCG/INH INH SCH (09:22)
[2020-08-23 13:11] VITALS: BP 99/64
[2020-08-23 18:27] VITALS: BP 126/77
[2020-08-23] MEDS: QUETIAPINE 200 MG TABLET PO SCH (20:54)
[2020-08-23] MEDS: ENOXAPARIN 40 MG/0.4 ML SQ SCH (20:54)
[2020-08-24 00:31] VITALS: BP 100/66
[2020-08-24 06:24] VITALS: BP 113/73
[2020-08-24] MEDS: INSULIN LISPRO 100 UNITS/ML, PEN SQ-INSULIN SCH ×4 (07:00→19:41)
[2020-08-24] MEDS: ALBUTEROL-IPRATROPIUM MDI INH INH SCH ×2 (07:40→19:38)
[2020-08-24] MEDS: FLUTICASONE/VILANTEROL 100-25MCG/INH INH SCH (07:40)
[2020-08-24] MEDS: GUAIFENESIN ER 600 MG TABLET PO SCH ×2 (08:31→19:39)
[2020-08-24] MEDS: QUETIAPINE 100MG TABLET PO SCH (08:31)
[2020-08-24] MEDS: MONTELUKAST 10 MG TABLET PO SCH (08:31)
[2020-08-24] MEDS: NICOTINE 21 MG/24 HR PATCH.TD24 TD SCH (08:31)
[2020-08-24] MEDS: SERTRALINE 100MG TABLET PO SCH (08:32)
[2020-08-24] MEDS: BENZONATATE 100 MG CAPSULE PO SCH ×3 (08:32→19:38)
[2020-08-24] MEDS: OMEPRAZOLE 20 MG CAPSULE.DR PO SCH (08:32)
[2020-08-24] MEDS: DIVALPROEX 500 MG TABLET.DR PO SCH ×2 (08:32→19:38)
[2020-08-24] MEDS: ASPIRIN 81 MG TABLET EC PO SCH (08:32)
[2020-08-24] MEDS: LISINOPRIL 40 MG TABLET PO SCH (08:32)
[2020-08-24] MEDS: CHOLECALCIFEROL 400 UNITS TABLET PO SCH ×2 (08:36→19:39)
[2020-08-24] MEDS: INSULIN GLARGINE 100 UNITS/ML, PEN SQ-INSULIN SCH ×2 (08:38→19:41)
[2020-08-24 12:03] VITALS: BP 105/71
[2020-08-24 18:42] VITALS: BP 110/67
[2020-08-24] MEDS: QUETIAPINE 200 MG TABLET PO SCH (19:38)
[2020-08-24] MEDS: ENOXAPARIN 40 MG/0.4 ML SQ SCH (19:39)
[2020-08-25 01:31] VITALS: BP 106/67
[2020-08-25 06:18] VITALS: BP 111/72
[2020-08-25] MEDS: ALBUTEROL-IPRATROPIUM MDI INH INH SCH ×2 (09:00→19:54)
[2020-08-25] MEDS: INSULIN GLARGINE 100 UNITS/ML, PEN SQ-INSULIN SCH ×2 (09:07→19:56)
[2020-08-25] MEDS: INSULIN LISPRO 100 UNITS/ML, PEN SQ-INSULIN SCH ×4 (09:08→19:56)
[2020-08-25] MEDS: DIVALPROEX 500 MG TABLET.DR PO SCH ×2 (09:09→19:55)
[2020-08-25] MEDS: SERTRALINE 100MG TABLET PO SCH (09:09)
[2020-08-25] MEDS: OMEPRAZOLE 20 MG CAPSULE.DR PO SCH (09:09)
[2020-08-25] MEDS: GUAIFENESIN ER 600 MG TABLET PO SCH ×2 (09:09→19:55)
[2020-08-25] MEDS: ASPIRIN 81 MG TABLET EC PO SCH (09:10)
[2020-08-25] MEDS: NICOTINE 21 MG/24 HR PATCH.TD24 TD SCH (09:10)
[2020-08-25] MEDS: QUETIAPINE 100MG TABLET PO SCH (09:10)
[2020-08-25] MEDS: CHOLECALCIFEROL 400 UNITS TABLET PO SCH ×2 (09:10→19:55)
[2020-08-25] MEDS: MONTELUKAST 10 MG TABLET PO SCH (09:10)
[2020-08-25] MEDS: BENZONATATE 100 MG CAPSULE PO SCH ×3 (09:10→19:55)
[2020-08-25] MEDS: LISINOPRIL 40 MG TABLET PO SCH (09:10)
[2020-08-25 12:39] VITALS: BP 115/71
[2020-08-25] MEDS: FLUTICASONE/VILANTEROL 100-25MCG/INH INH SCH (13:33)
[2020-08-25 18:48] VITALS: BP 117/71
[2020-08-25] MEDS: QUETIAPINE 200 MG TABLET PO SCH (19:55)
[2020-08-25] MEDS: ENOXAPARIN 40 MG/0.4 ML SQ SCH (20:01)
[2020-08-26 00:21] VITALS: BP 108/70
[2020-08-26 06:21] VITALS: BP 94/63
[2020-08-26] MEDS: INSULIN LISPRO 100 UNITS/ML, PEN SQ-INSULIN SCH ×4 (07:00→21:00)
[2020-08-26] MEDS: FLUTICASONE/VILANTEROL 100-25MCG/INH INH SCH (08:12)
[2020-08-26] MEDS: INSULIN GLARGINE 100 UNITS/ML, PEN SQ-INSULIN SCH (08:15)
[2020-08-26] MEDS: ASPIRIN 81 MG TABLET EC PO SCH (08:16)
[2020-08-26] MEDS: OMEPRAZOLE 20 MG CAPSULE.DR PO SCH (08:16)
[2020-08-26] MEDS: CHOLECALCIFEROL 400 UNITS TABLET PO SCH ×2 (08:16→20:18)
[2020-08-26] MEDS: SERTRALINE 100MG TABLET PO SCH (08:16)
[2020-08-26] MEDS: NICOTINE 21 MG/24 HR PATCH.TD24 TD SCH (08:16)
[2020-08-26] MEDS: GUAIFENESIN ER 600 MG TABLET PO SCH ×2 (08:16→20:17)
[2020-08-26] MEDS: MONTELUKAST 10 MG TABLET PO SCH (08:17)
[2020-08-26] MEDS: QUETIAPINE 100MG TABLET PO SCH (08:17)
[2020-08-26] MEDS: BENZONATATE 100 MG CAPSULE PO SCH ×3 (08:17→20:17)
[2020-08-26] MEDS: DIVALPROEX 500 MG TABLET.DR PO SCH ×2 (08:17→20:17)
[2020-08-26] MEDS: ALBUTEROL-IPRATROPIUM MDI INH INH SCH ×2 (08:19→22:00)
[2020-08-26 08:31] VITALS: BP 100/69
[2020-08-26] MEDS: LISINOPRIL 40 MG TABLET PO SCH (09:00)
[2020-08-26 12:19] VITALS: BP 145/75
[2020-08-26 19:52] VITALS: BP 127/76
[2020-08-26] MEDS: QUETIAPINE 200 MG TABLET PO SCH (20:17)
[2020-08-26] MEDS: ENOXAPARIN 40 MG/0.4 ML SQ SCH (20:45)
[2020-08-27] MEDS: INSULIN GLARGINE 100 UNITS/ML, PEN SQ-INSULIN SCH ×3 (00:05→22:37)
[2020-08-27 02:02] VITALS: BP 109/69
[2020-08-27] MEDS: INSULIN LISPRO 100 UNITS/ML, PEN SQ-INSULIN SCH ×5 (07:00→22:36)
[2020-08-27 07:54] VITALS: BP 113/70
[2020-08-27] MEDS: DIVALPROEX 500 MG TABLET.DR PO SCH ×2 (07:57→20:45)
[2020-08-27] MEDS: OMEPRAZOLE 20 MG CAPSULE.DR PO SCH (07:57)
[2020-08-27] MEDS: LISINOPRIL 40 MG TABLET PO SCH (07:57)
[2020-08-27] MEDS: GUAIFENESIN ER 600 MG TABLET PO SCH ×2 (07:57→20:46)
[2020-08-27] MEDS: CHOLECALCIFEROL 400 UNITS TABLET PO SCH ×2 (07:57→20:45)
[2020-08-27] MEDS: MONTELUKAST 10 MG TABLET PO SCH (07:57)
[2020-08-27] MEDS: BENZONATATE 100 MG CAPSULE PO SCH ×3 (07:57→20:46)
[2020-08-27] MEDS: NICOTINE 21 MG/24 HR PATCH.TD24 TD SCH (07:57)
[2020-08-27] MEDS: ASPIRIN 81 MG TABLET EC PO SCH (07:57)
[2020-08-27] MEDS: QUETIAPINE 100MG TABLET PO SCH (07:58)
[2020-08-27] MEDS: SERTRALINE 100MG TABLET PO SCH (07:58)
[2020-08-27] MEDS: FLUTICASONE/VILANTEROL 100-25MCG/INH INH SCH (10:48)
[2020-08-27] MEDS: ALBUTEROL-IPRATROPIUM MDI INH INH SCH ×2 (10:48→20:33)
[2020-08-27 14:49] VITALS: BP 98/66
[2020-08-27 19:48] VITALS: BP 103/63
[2020-08-27] MEDS: QUETIAPINE 200 MG TABLET PO SCH (20:45)
[2020-08-27] MEDS: ENOXAPARIN 40 MG/0.4 ML SQ SCH (20:45)
[2020-08-28 01:49] VITALS: BP 101/66
[2020-08-28] MEDS: INSULIN LISPRO 100 UNITS/ML, PEN SQ-INSULIN SCH ×4 (07:00→20:58)
[2020-08-28] MEDS: ALBUTEROL-IPRATROPIUM MDI INH INH SCH ×2 (08:13→19:12)
[2020-08-28] MEDS: FLUTICASONE/VILANTEROL 100-25MCG/INH INH SCH (08:13)
[2020-08-28 08:29] VITALS: BP 85/51
[2020-08-28] MEDS: LISINOPRIL 40 MG TABLET PO SCH (08:31)
[2020-08-28 08:32] VITALS: BP 85/51
[2020-08-28] MEDS: INSULIN GLARGINE 100 UNITS/ML, PEN SQ-INSULIN SCH ×2 (09:00→20:59)
[2020-08-28] MEDS: OMEPRAZOLE 20 MG CAPSULE.DR PO SCH (09:03)
[2020-08-28] MEDS: BENZONATATE 100 MG CAPSULE PO SCH ×3 (09:03→20:57)
[2020-08-28] MEDS: ASPIRIN 81 MG TABLET EC PO SCH (09:04)
[2020-08-28] MEDS: CHOLECALCIFEROL 400 UNITS TABLET PO SCH ×2 (09:04→20:57)
[2020-08-28] MEDS: DIVALPROEX 500 MG TABLET.DR PO SCH ×2 (09:04→20:57)
[2020-08-28] MEDS: GUAIFENESIN ER 600 MG TABLET PO SCH ×2 (09:04→20:57)
[2020-08-28] MEDS: MONTELUKAST 10 MG TABLET PO SCH (09:04)
[2020-08-28] MEDS: SERTRALINE 100MG TABLET PO SCH (09:04)
[2020-08-28] MEDS: QUETIAPINE 100MG TABLET PO SCH (09:04)
[2020-08-28] MEDS: NICOTINE 21 MG/24 HR PATCH.TD24 TD SCH (09:05)
[2020-08-28 13:10] VITALS: BP 94/61
[2020-08-28 20:30] VITALS: BP 119/73
[2020-08-28] MEDS: ENOXAPARIN 40 MG/0.4 ML SQ SCH (20:57)
[2020-08-28] MEDS: QUETIAPINE 200 MG TABLET PO SCH (21:01)
[2020-08-29 02:35] VITALS: BP 98/60
[2020-08-29 06:48] VITALS: BP 100/54
[2020-08-29] MEDS: INSULIN LISPRO 100 UNITS/ML, PEN SQ-INSULIN SCH ×4 (07:00→20:33)
[2020-08-29] MEDS: FLUTICASONE/VILANTEROL 100-25MCG/INH INH SCH (08:22)
[2020-08-29] MEDS: ALBUTEROL-IPRATROPIUM MDI INH INH SCH ×2 (08:22→18:40)
[2020-08-29] MEDS: QUETIAPINE 100MG TABLET PO SCH (08:58)
[2020-08-29] MEDS: MONTELUKAST 10 MG TABLET PO SCH (08:58)
[2020-08-29] MEDS: NICOTINE 21 MG/24 HR PATCH.TD24 TD SCH (08:59)
[2020-08-29] MEDS: ASPIRIN 81 MG TABLET EC PO SCH (08:59)
[2020-08-29] MEDS: OMEPRAZOLE 20 MG CAPSULE.DR PO SCH (08:59)
[2020-08-29] MEDS: BENZONATATE 100 MG CAPSULE PO SCH ×3 (08:59→20:32)
[2020-08-29] MEDS: DIVALPROEX 500 MG TABLET.DR PO SCH ×2 (08:59→20:31)
[2020-08-29] MEDS: SERTRALINE 100MG TABLET PO SCH (08:59)
[2020-08-29] MEDS: GUAIFENESIN ER 600 MG TABLET PO SCH ×2 (08:59→20:31)
[2020-08-29] MEDS: INSULIN GLARGINE 100 UNITS/ML, PEN SQ-INSULIN SCH ×2 (09:00→20:33)
[2020-08-29] MEDS: LISINOPRIL 40 MG TABLET PO SCH (09:00)
[2020-08-29 09:02] VITALS: BP 93/60
[2020-08-29] MEDS: CHOLECALCIFEROL 400 UNITS TABLET PO SCH ×2 (09:04→20:32)
[2020-08-29 13:23] VITALS: BP 112/68
[2020-08-29 19:30] VITALS: BP 123/67
[2020-08-29] MEDS: QUETIAPINE 200 MG TABLET PO SCH (20:32)
[2020-08-29] MEDS: ENOXAPARIN 40 MG/0.4 ML SQ SCH (20:32)
[2020-08-30 01:15] VITALS: BP 109/70
[2020-08-30] MEDS: INSULIN LISPRO 100 UNITS/ML, PEN SQ-INSULIN SCH ×4 (07:00→21:09)
[2020-08-30 07:25] VITALS: BP 102/58
[2020-08-30] MEDS: FLUTICASONE/VILANTEROL 100-25MCG/INH INH SCH (07:45)
[2020-08-30] MEDS: ALBUTEROL-IPRATROPIUM MDI INH INH SCH ×2 (07:45→19:52)
[2020-08-30] MEDS: NICOTINE 21 MG/24 HR PATCH.TD24 TD SCH (08:42)
[2020-08-30] MEDS: LISINOPRIL 40 MG TABLET PO SCH (08:43)
[2020-08-30] MEDS: OMEPRAZOLE 20 MG CAPSULE.DR PO SCH (08:43)
[2020-08-30] MEDS: QUETIAPINE 100MG TABLET PO SCH (08:43)
[2020-08-30] MEDS: ASPIRIN 81 MG TABLET EC PO SCH (08:43)
[2020-08-30] MEDS: MONTELUKAST 10 MG TABLET PO SCH (08:43)
[2020-08-30] MEDS: BENZONATATE 100 MG CAPSULE PO SCH ×3 (08:43→21:10)
[2020-08-30] MEDS: CHOLECALCIFEROL 400 UNITS TABLET PO SCH ×2 (08:43→21:10)
[2020-08-30] MEDS: SERTRALINE 100MG TABLET PO SCH (08:43)
[2020-08-30] MEDS: DIVALPROEX 500 MG TABLET.DR PO SCH ×2 (08:43→21:10)
[2020-08-30] MEDS: GUAIFENESIN ER 600 MG TABLET PO SCH ×2 (08:43→21:10)
[2020-08-30] MEDS: INSULIN GLARGINE 100 UNITS/ML, PEN SQ-INSULIN SCH ×2 (08:44→21:09)
[2020-08-30 12:05] VITALS: BP 110/62
[2020-08-30 19:41] VITALS: BP 125/80
[2020-08-30] MEDS: QUETIAPINE 200 MG TABLET PO SCH (21:10)
[2020-08-30] MEDS: ENOXAPARIN 40 MG/0.4 ML SQ SCH (21:10)
[2020-08-31 05:50] LABS: CREATININE 0.82 mg/dL (0.55-1.02)
[2020-08-31] MEDS: INSULIN LISPRO 100 UNITS/ML, PEN SQ-INSULIN SCH ×4 (07:00→21:13)
[2020-08-31] MEDS: QUETIAPINE 100MG TABLET PO SCH (07:42)
[2020-08-31] MEDS: MONTELUKAST 10 MG TABLET PO SCH (07:42)
[2020-08-31] MEDS: GUAIFENESIN ER 600 MG TABLET PO SCH ×2 (07:42→21:12)
[2020-08-31] MEDS: SERTRALINE 100MG TABLET PO SCH (07:42)
[2020-08-31] MEDS: DIVALPROEX 500 MG TABLET.DR PO SCH ×2 (07:42→21:12)
[2020-08-31] MEDS: OMEPRAZOLE 20 MG CAPSULE.DR PO SCH (07:42)
[2020-08-31] MEDS: ASPIRIN 81 MG TABLET EC PO SCH (07:42)
[2020-08-31] MEDS: LISINOPRIL 40 MG TABLET PO SCH (07:42)
[2020-08-31] MEDS: BENZONATATE 100 MG CAPSULE PO SCH ×3 (07:42→21:12)
[2020-08-31] MEDS: CHOLECALCIFEROL 400 UNITS TABLET PO SCH ×2 (07:42→21:12)
[2020-08-31] MEDS: NICOTINE 21 MG/24 HR PATCH.TD24 TD SCH (07:43)
[2020-08-31] MEDS: INSULIN GLARGINE 100 UNITS/ML, PEN SQ-INSULIN SCH ×2 (07:44→21:13)
[2020-08-31 08:12] VITALS: BP 119/61
[2020-08-31] MEDS: FLUTICASONE/VILANTEROL 100-25MCG/INH INH SCH (08:43)
[2020-08-31] MEDS: ALBUTEROL-IPRATROPIUM MDI INH INH SCH ×2 (08:43→19:47)
[2020-08-31 12:12] VITALS: BP 112/68
[2020-08-31 19:49] VITALS: BP 135/86
[2020-08-31] MEDS: ENOXAPARIN 40 MG/0.4 ML SQ SCH (21:12)
[2020-08-31] MEDS: QUETIAPINE 200 MG TABLET PO SCH (21:12)
[2020-09-01] MEDS: INSULIN LISPRO 100 UNITS/ML, PEN SQ-INSULIN SCH ×4 (07:00→19:53)
[2020-09-01] MEDS: OMEPRAZOLE 20 MG CAPSULE.DR PO SCH (07:10)
[2020-09-01 07:56] VITALS: BP 98/63
[2020-09-01] MEDS: ALBUTEROL-IPRATROPIUM MDI INH INH SCH ×2 (08:10→20:35)
[2020-09-01] MEDS: FLUTICASONE/VILANTEROL 100-25MCG/INH INH SCH (08:10)
[2020-09-01] MEDS: INSULIN GLARGINE 100 UNITS/ML, PEN SQ-INSULIN SCH ×2 (09:13→19:54)
[2020-09-01] MEDS: NICOTINE 21 MG/24 HR PATCH.TD24 TD SCH (09:13)
[2020-09-01] MEDS: SERTRALINE 100MG TABLET PO SCH (09:13)
[2020-09-01] MEDS: BENZONATATE 100 MG CAPSULE PO SCH ×3 (09:14→19:46)
[2020-09-01] MEDS: MONTELUKAST 10 MG TABLET PO SCH (09:14)
[2020-09-01] MEDS: LISINOPRIL 40 MG TABLET PO SCH (09:14)
[2020-09-01] MEDS: CHOLECALCIFEROL 400 UNITS TABLET PO SCH ×2 (09:14→19:46)
[2020-09-01] MEDS: ASPIRIN 81 MG TABLET EC PO SCH (09:14)
[2020-09-01] MEDS: QUETIAPINE 100MG TABLET PO SCH (09:14)
[2020-09-01] MEDS: GUAIFENESIN ER 600 MG TABLET PO SCH ×2 (09:15→19:46)
[2020-09-01] MEDS: DIVALPROEX 500 MG TABLET.DR PO SCH ×2 (09:15→19:45)
[2020-09-01 12:15] VITALS: BP 101/68
[2020-09-01 19:42] VITALS: BP 116/61
[2020-09-01] MEDS: QUETIAPINE 200 MG TABLET PO SCH (19:46)
[2020-09-01] MEDS: ENOXAPARIN 40 MG/0.4 ML SQ SCH (19:46)
[2020-09-02 07:58] VITALS: BP 110/69
[2020-09-02] MEDS: CHOLECALCIFEROL 400 UNITS TABLET PO SCH ×2 (08:18→20:45)
[2020-09-02] MEDS: NICOTINE 21 MG/24 HR PATCH.TD24 TD SCH (08:18)
[2020-09-02] MEDS: DIVALPROEX 500 MG TABLET.DR PO SCH ×2 (08:18→20:45)
[2020-09-02] MEDS: LISINOPRIL 40 MG TABLET PO SCH (08:19)
[2020-09-02] MEDS: QUETIAPINE 100MG TABLET PO SCH (08:19)
[2020-09-02] MEDS: ASPIRIN 81 MG TABLET EC PO SCH (08:19)
[2020-09-02] MEDS: MONTELUKAST 10 MG TABLET PO SCH (08:19)
[2020-09-02] MEDS: SERTRALINE 100MG TABLET PO SCH (08:19)
[2020-09-02] MEDS: BENZONATATE 100 MG CAPSULE PO SCH ×3 (08:19→22:43)
[2020-09-02] MEDS: GUAIFENESIN ER 600 MG TABLET PO SCH ×2 (08:19→20:45)
[2020-09-02] MEDS: OMEPRAZOLE 20 MG CAPSULE.DR PO SCH (08:20)
[2020-09-02] MEDS: INSULIN GLARGINE 100 UNITS/ML, PEN SQ-INSULIN SCH ×2 (08:20→20:46)
[2020-09-02] MEDS: INSULIN LISPRO 100 UNITS/ML, PEN SQ-INSULIN SCH ×4 (08:21→20:46)
[2020-09-02] MEDS: FLUTICASONE/VILANTEROL 100-25MCG/INH INH SCH (08:30)
[2020-09-02] MEDS: ALBUTEROL-IPRATROPIUM MDI INH INH SCH ×2 (08:31→19:19)
[2020-09-02 12:35] VITALS: BP 97/64
[2020-09-02 20:42] VITALS: BP 120/67
[2020-09-02] MEDS: QUETIAPINE 200 MG TABLET PO SCH (20:45)
[2020-09-02] MEDS: ENOXAPARIN 40 MG/0.4 ML SQ SCH (20:48)
[2020-09-03 06:24] VITALS: BP 104/67
[2020-09-03] MEDS: INSULIN LISPRO 100 UNITS/ML, PEN SQ-INSULIN SCH ×4 (07:00→21:00)
[2020-09-03] MEDS: DIVALPROEX 500 MG TABLET.DR PO SCH ×2 (07:52→21:32)
[2020-09-03] MEDS: MONTELUKAST 10 MG TABLET PO SCH (07:52)
[2020-09-03] MEDS: QUETIAPINE 100MG TABLET PO SCH (07:52)
[2020-09-03] MEDS: SERTRALINE 100MG TABLET PO SCH (07:52)
[2020-09-03] MEDS: OMEPRAZOLE 20 MG CAPSULE.DR PO SCH (07:52)
[2020-09-03] MEDS: CHOLECALCIFEROL 400 UNITS TABLET PO SCH ×2 (07:52→21:32)
[2020-09-03] MEDS: ASPIRIN 81 MG TABLET EC PO SCH (07:52)
[2020-09-03] MEDS: BENZONATATE 100 MG CAPSULE PO SCH ×3 (07:52→22:41)
[2020-09-03] MEDS: LISINOPRIL 40 MG TABLET PO SCH (07:52)
[2020-09-03] MEDS: GUAIFENESIN ER 600 MG TABLET PO SCH ×2 (07:52→21:32)
[2020-09-03] MEDS: NICOTINE 21 MG/24 HR PATCH.TD24 TD SCH (07:53)
[2020-09-03] MEDS: ALBUTEROL-IPRATROPIUM MDI INH INH SCH ×2 (08:36→20:39)
[2020-09-03] MEDS: FLUTICASONE/VILANTEROL 100-25MCG/INH INH SCH (08:36)
[2020-09-03] MEDS: INSULIN GLARGINE 100 UNITS/ML, PEN SQ-INSULIN SCH ×2 (10:13→21:32)
[2020-09-03 12:30] VITALS: BP 105/67
[2020-09-03 18:43] VITALS: BP 135/77
[2020-09-03] MEDS: ENOXAPARIN 40 MG/0.4 ML SQ SCH (21:32)
[2020-09-03] MEDS: QUETIAPINE 200 MG TABLET PO SCH (21:32)
[2020-09-04] MEDS: INSULIN LISPRO 100 UNITS/ML, PEN SQ-INSULIN SCH ×4 (07:00→21:00)
[2020-09-04] MEDS: GUAIFENESIN ER 600 MG TABLET PO SCH ×2 (08:10→21:24)
[2020-09-04] MEDS: MONTELUKAST 10 MG TABLET PO SCH (08:10)
[2020-09-04] MEDS: BENZONATATE 100 MG CAPSULE PO SCH ×3 (08:10→21:25)
[2020-09-04] MEDS: NICOTINE 21 MG/24 HR PATCH.TD24 TD SCH (08:10)
[2020-09-04] MEDS: OMEPRAZOLE 20 MG CAPSULE.DR PO SCH (08:10)
[2020-09-04] MEDS: ASPIRIN 81 MG TABLET EC PO SCH (08:10)
[2020-09-04] MEDS: LISINOPRIL 40 MG TABLET PO SCH (08:10)
[2020-09-04] MEDS: SERTRALINE 100MG TABLET PO SCH (08:10)
[2020-09-04] MEDS: DIVALPROEX 500 MG TABLET.DR PO SCH ×2 (08:10→21:25)
[2020-09-04] MEDS: CHOLECALCIFEROL 400 UNITS TABLET PO SCH ×2 (08:10→21:25)
[2020-09-04] MEDS: QUETIAPINE 100MG TABLET PO SCH (08:10)
[2020-09-04 08:15] VITALS: BP 114/71
[2020-09-04] MEDS: INSULIN GLARGINE 100 UNITS/ML, PEN SQ-INSULIN SCH ×2 (08:24→21:24)
[2020-09-04] MEDS: ALBUTEROL-IPRATROPIUM MDI INH INH SCH ×2 (08:58→18:26)
[2020-09-04] MEDS: FLUTICASONE/VILANTEROL 100-25MCG/INH INH SCH (08:58)
[2020-09-04 13:17] VITALS: BP 120/74
[2020-09-04 19:09] VITALS: BP 143/79
[2020-09-04] MEDS: QUETIAPINE 200 MG TABLET PO SCH (21:24)
[2020-09-04] MEDS: ENOXAPARIN 40 MG/0.4 ML SQ SCH (21:24)
[2020-09-05] MEDS: INSULIN LISPRO 100 UNITS/ML, PEN SQ-INSULIN SCH ×4 (07:00→20:08)
[2020-09-05 07:39] VITALS: BP 100/58
[2020-09-05] MEDS: CHOLECALCIFEROL 400 UNITS TABLET PO SCH ×2 (07:52→20:09)
[2020-09-05] MEDS: MONTELUKAST 10 MG TABLET PO SCH (07:52)
[2020-09-05] MEDS: BENZONATATE 100 MG CAPSULE PO SCH ×3 (07:52→20:09)
[2020-09-05] MEDS: SERTRALINE 100MG TABLET PO SCH (07:52)
[2020-09-05] MEDS: OMEPRAZOLE 20 MG CAPSULE.DR PO SCH (07:52)
[2020-09-05] MEDS: LISINOPRIL 40 MG TABLET PO SCH (07:52)
[2020-09-05] MEDS: DIVALPROEX 500 MG TABLET.DR PO SCH ×2 (07:52→20:09)
[2020-09-05] MEDS: ASPIRIN 81 MG TABLET EC PO SCH (07:52)
[2020-09-05] MEDS: GUAIFENESIN ER 600 MG TABLET PO SCH ×2 (07:53→20:09)
[2020-09-05] MEDS: QUETIAPINE 100MG TABLET PO SCH (07:53)
[2020-09-05] MEDS: NICOTINE 21 MG/24 HR PATCH.TD24 TD SCH (07:53)
[2020-09-05] MEDS: ALBUTEROL-IPRATROPIUM MDI INH INH SCH ×2 (08:54→19:01)
[2020-09-05] MEDS: FLUTICASONE/VILANTEROL 100-25MCG/INH INH SCH (08:54)
[2020-09-05] MEDS: INSULIN GLARGINE 100 UNITS/ML, PEN SQ-INSULIN SCH ×2 (09:32→20:08)
[2020-09-05 12:55] VITALS: BP 100/67
[2020-09-05 19:17] VITALS: BP 147/75
[2020-09-05] MEDS: ENOXAPARIN 40 MG/0.4 ML SQ SCH (20:09)
[2020-09-05] MEDS: QUETIAPINE 200 MG TABLET PO SCH (20:09)
[2020-09-06 07:00] VITALS: BP 139/74
[2020-09-06] MEDS: INSULIN LISPRO 100 UNITS/ML, PEN SQ-INSULIN SCH ×2 (07:00→11:00)
[2020-09-06] MEDS: MONTELUKAST 10 MG TABLET PO SCH (07:59)
[2020-09-06] MEDS: DIVALPROEX 500 MG TABLET.DR PO SCH ×2 (07:59→20:51)
[2020-09-06] MEDS: QUETIAPINE 100MG TABLET PO SCH (07:59)
[2020-09-06] MEDS: SERTRALINE 100MG TABLET PO SCH (07:59)
[2020-09-06] MEDS: GUAIFENESIN ER 600 MG TABLET PO SCH ×2 (08:00→20:51)
[2020-09-06] MEDS: LISINOPRIL 40 MG TABLET PO SCH (08:00)
[2020-09-06] MEDS: BENZONATATE 100 MG CAPSULE PO SCH ×3 (08:00→20:51)
[2020-09-06] MEDS: ASPIRIN 81 MG TABLET EC PO SCH (08:00)
[2020-09-06] MEDS: NICOTINE 21 MG/24 HR PATCH.TD24 TD SCH (08:00)
[2020-09-06] MEDS: CHOLECALCIFEROL 400 UNITS TABLET PO SCH ×2 (08:00→20:51)
[2020-09-06] MEDS: OMEPRAZOLE 20 MG CAPSULE.DR PO SCH (08:03)
[2020-09-06] MEDS: INSULIN GLARGINE 100 UNITS/ML, PEN SQ-INSULIN SCH ×2 (08:04→20:50)
[2020-09-06] MEDS: ALBUTEROL-IPRATROPIUM MDI INH INH SCH ×2 (10:45→19:10)
[2020-09-06] MEDS: FLUTICASONE/VILANTEROL 100-25MCG/INH INH SCH (10:45)
[2020-09-06 13:02] VITALS: BP 103/67
[2020-09-06] MEDS: QUETIAPINE 200 MG TABLET PO SCH (20:51)
[2020-09-06] MEDS: ENOXAPARIN 40 MG/0.4 ML SQ SCH (20:51)
[2020-09-06 20:55] VITALS: BP 119/74
[2020-09-07 07:33] VITALS: BP 144/75
[2020-09-07] MEDS: SERTRALINE 100MG TABLET PO SCH (08:50)
[2020-09-07] MEDS: LISINOPRIL 40 MG TABLET PO SCH (08:51)
[2020-09-07] MEDS: CHOLECALCIFEROL 400 UNITS TABLET PO SCH ×2 (08:51→21:43)
[2020-09-07] MEDS: BENZONATATE 100 MG CAPSULE PO SCH ×3 (08:51→21:44)
[2020-09-07] MEDS: OMEPRAZOLE 20 MG CAPSULE.DR PO SCH (08:51)
[2020-09-07] MEDS: NICOTINE 21 MG/24 HR PATCH.TD24 TD SCH (08:51)
[2020-09-07] MEDS: DIVALPROEX 500 MG TABLET.DR PO SCH ×2 (08:51→21:44)
[2020-09-07] MEDS: MONTELUKAST 10 MG TABLET PO SCH (08:51)
[2020-09-07] MEDS: GUAIFENESIN ER 600 MG TABLET PO SCH ×2 (08:51→21:43)
[2020-09-07] MEDS: QUETIAPINE 100MG TABLET PO SCH (08:51)
[2020-09-07] MEDS: ASPIRIN 81 MG TABLET EC PO SCH (08:51)
[2020-09-07] MEDS: INSULIN GLARGINE 100 UNITS/ML, PEN SQ-INSULIN SCH ×2 (10:01→21:45)
[2020-09-07] MEDS: ALBUTEROL-IPRATROPIUM MDI INH INH SCH ×2 (12:10→19:20)
[2020-09-07] MEDS: FLUTICASONE/VILANTEROL 100-25MCG/INH INH SCH (12:10)
[2020-09-07 14:39] VITALS: BP 102/57
[2020-09-07 19:18] VITALS: BP 112/69
[2020-09-07] MEDS: QUETIAPINE 200 MG TABLET PO SCH (21:43)
[2020-09-07] MEDS: ENOXAPARIN 40 MG/0.4 ML SQ SCH (21:44)
[2020-09-08] MEDS ORDERED: POTASSIUM CHLORIDE 20 MEQ TAB.ER.PRT PO SCH (08:00)
[2020-09-08] MEDS: LISINOPRIL 40 MG TABLET PO SCH (08:11)
[2020-09-08 08:16] VITALS: BP 101/64
[2020-09-08] MEDS: ASPIRIN 81 MG TABLET EC PO SCH (08:19)
[2020-09-08] MEDS: GUAIFENESIN ER 600 MG TABLET PO SCH ×2 (08:19→19:51)
[2020-09-08] MEDS: SERTRALINE 100MG TABLET PO SCH (08:19)
[2020-09-08] MEDS: OMEPRAZOLE 20 MG CAPSULE.DR PO SCH (08:20)
[2020-09-08] MEDS: BENZONATATE 100 MG CAPSULE PO SCH ×3 (08:20→19:51)
[2020-09-08] MEDS: QUETIAPINE 100MG TABLET PO SCH (08:20)
[2020-09-08] MEDS: CHOLECALCIFEROL 400 UNITS TABLET PO SCH ×2 (08:20→19:51)
[2020-09-08] MEDS: NICOTINE 21 MG/24 HR PATCH.TD24 TD SCH (08:21)
[2020-09-08] MEDS: DIVALPROEX 500 MG TABLET.DR PO SCH ×2 (08:21→19:51)
[2020-09-08] MEDS: MONTELUKAST 10 MG TABLET PO SCH (08:22)
[2020-09-08] MEDS: INSULIN GLARGINE 100 UNITS/ML, PEN SQ-INSULIN SCH ×2 (08:24→19:52)
[2020-09-08] MEDS ORDERED: FUROSEMIDE 20 MG TABLET PO SCH (09:00)
[2020-09-08] MEDS: FLUTICASONE/VILANTEROL 100-25MCG/INH INH SCH (09:02)
[2020-09-08] MEDS: ALBUTEROL-IPRATROPIUM MDI INH INH SCH ×2 (09:02→19:15)
[2020-09-08 13:04] VITALS: BP 93/61
[2020-09-08] MEDS ORDERED: DIVA500T2 PO (18:28)
[2020-09-08] MEDS ORDERED: SERT100T32 PO (18:28)
[2020-09-08] MEDS ORDERED: INSU100I34 SQ (18:28)
[2020-09-08] MEDS ORDERED: ASPI81TA45 PO (18:28)
[2020-09-08] MEDS ORDERED: QUET100T4 PO (18:28)
[2020-09-08] MEDS ORDERED: FLUT9.9S NS (18:28)
[2020-09-08] MEDS ORDERED: BUDE10.22 INH (18:28)
[2020-09-08] MEDS ORDERED: MONT10TA6 PO (18:28)
[2020-09-08] MEDS ORDERED: METF500T17 PO (18:28)
[2020-09-08] MEDS ORDERED: LISI40TA PO (18:28)
[2020-09-08] MEDS ORDERED: IPRA12.9 INH (18:28)
[2020-09-08] MEDS ORDERED: QUET400T4 PO (18:28)
[2020-09-08] MEDS ORDERED: OMEP-110 PO (18:28)
[2020-09-08] MEDS ORDERED: GUAI600T31 PO (18:28)
[2020-09-08 19:18] VITALS: BP 117/73
[2020-09-08] MEDS: QUETIAPINE 200 MG TABLET PO SCH (19:51)
[2020-09-08] MEDS: ENOXAPARIN 40 MG/0.4 ML SQ SCH (19:52)
[2020-09-09 00:38] VITALS: BP 104/67
== END 2020-09-09 06:30 | disposition home or self-care (01) | DRG 137 ==
LOC: ED 21:09 → EDIP 22:55 → 4EST 23:53 → 3N 08-26 18:55
PROVIDERS: ADMIT Internal Medicine; ATTEND Internal Medicine
DX: U07.1 COVID-19 (principal); J12.89 Other viral pneumonia; J96.21 Acute and chronic respiratory failure with hypoxia; F31.81 Bipolar II disorder; J44.0 Chronic obstructive pulmonary disease with (acute) lower respiratory infection; J44.1 Chronic obstructive pulmonary disease with (acute) exacerbation; E11.9 Type 2 diabetes mellitus without complications; F17.200 Nicotine dependence, unspecified, uncomplicated; I10 Essential (primary) hypertension; K21.9 Gastro-esophageal reflux disease without esophagitis; Z59.0 Homelessness; Z87.440 Personal history of urinary (tract) infections; Z99.3 Dependence on wheelchair; Z91.030 Bee allergy status
CPT/HCPCS: 36415; 36600; 96361; 96374; 99291; J7613; 71045; 71275; 80053; 80061; 80307; 81003; 82565; 82728; 82803; 82962; 83036; 83615; 83690; 83735; 83880; 84443; 85025; 85379; 87040; 87635; 94640; G0378; J0456; J0696; J1650; J2405; J2550; Q0162; Q9967; J1815; J2920; J7030; J7050; J7512